=== PATIENT | male | born 1975 | race Caucasian/White ===

== ENCOUNTER 2017-06-26 21:15 | Emergency (ER) | payer BC ==
--- NOTE | 2017-06-26 21:30 | EDM.PDOC ---
ED HPI GENERAL MEDICAL PROBLEM - General Stated Complaint: LT ARM PAIN Time Seen by Provider: 06/26/17 21:21 Source of Information: Reports: Patient, Family History Limitations: Reports: No Limitations - History of Present Illness INITIAL COMMENTS - FREE TEXT/NARRATIVE: 41 y.o.w.m came to the ed 5 hours after he was hit by a hockey stick onto his left forearm. Pt had FROM with pain. No open wound. No N/V/D or any other acute medical issues. BP 149/83 RR 18 Pulse ox 99% on RA Temp 36.6 Pulse 85 Onset: Today Onset Date: 06/26/17 Onset Time: 17:00 Duration: Hour(s): Location: Reports: Upper Extremity, Left Quality: Reports: Ache, Burning, Dull Severity: Moderate Improves with: Reports: Rest Worsens with: Reports: Movement Context: Reports: Trauma Treatments PELT GRADER: Reports: Acetaminophen L forearm & elbow Pain Score (Numeric/FACES): 7 - Related Data Allergies Allergy/AdvReac Type Severity Reaction Status Date / Time clindamycin Allergy Rash Verified 06/26/17 21:25 Home Meds: Home Meds NK [No Known Home Meds] 06/26/17 [History] Review of Systems - Review of Systems Review Of Systems: See Below Constitutional: Reports: No Symptoms Eyes: Reports: No Symptoms Ears: Reports: No Symptoms Nose: Reports: No Symptoms Mouth/Throat: Reports: No Symptoms Respiratory: Reports: No Symptoms Cardiovascular: Reports: No Symptoms GI/Abdominal: Reports: No Symptoms Genitourinary: Reports: No Symptoms Musculoskeletal: Reports: Arm Pain Skin: Reports: No Symptoms Neurological: Reports: No Symptoms Psychiatric: Reports: No Symptoms ED EXAM, GENERAL - Physical Exam Exam: See Below Exam Limited By: No Limitations General Appearance: Alert, WD/WN, Moderate Distress Eye Exam: Bilateral Eye: Normal Inspection Ears: Normal External Exam Ear Exam: Bilateral Ear: Auricle Normal Nose: Normal Inspection, Normal Mucosa Throat/Mouth: Normal Inspection, Normal Lips Head: Atraumatic, Normocephalic Neck: Normal Inspection, Supple, Non-Tender, Full Range of Motion Respiratory/Chest: No Respiratory Distress, Lungs Clear, Normal Breath Sounds, Chest Non-Tender Cardiovascular: Normal Peripheral Pulses, Regular Rate, Rhythm, No Edema, No Gallop, No Rub Peripheral Pulses: 1+: Brachial (L) GI/Abdominal: Normal Bowel Sounds, Soft, Non-Tender (Male) Exam: Deferred Rectal (Males) Exam: Deferred Back Exam: Normal Inspection, Full Range of Motion Extremities: Normal Inspection, Normal Range of Motion, Normal Capillary Refill , Other (tender, deformed left forearm) Neurological: Alert, Oriented, CN II-XII Intact, Normal Cognition, Normal Gait Psychiatric: Normal Affect, Normal Mood Skin Exam: Warm, Dry, Intact, Normal Color, No Rash Lymphatic: No Adenopathy ED TRAUMA EXTREMITY PROCEDURES - Splinting Left Upper Extremity Pre-Procedure NV Status: Normal Post-Procedure NV Status: Normal Splint Material: Plaster Splint Design: Volar Applied & Form Fitted By: Provider Provider Post-Splint Application NV Check: NV Status Normal, Good Position Complications: No Course - Vital Signs Text/Narrative:: 41 y.o.w.m came to the ed 5 hours after he was hit by a hockey stick onto his left forearm. Pt had FROM with pain. No open wound. No N/V/D or any other acute medical issues. BP 149/83 RR 18 Pulse ox 99% on RA Temp 36.6 Pulse 85 PE: WNWD W M NAD with left mid forearm pain and swelling Imaging: Hairline Fx left mid shaft of radius Impression: Hairline Fx left mid shaft of radius, closed Tx: Long forearm splint, armsling, Toradol, Percocet Reecheck: Cap refill <2 sec from of fingers Plan: D/C with instructions Addendum: Imaging film were sent to PACS: No facture left forearm, soft tissue swelling, however. I have called the pt at about 8 am, telling him there is no radius far and the splint can be taken off. He may still have pain for a week or so. Sha black 06/27/2017 9 am Last Recorded V/S: Last Vital Signs Temp 36.7 C 06/26/17 21:18 Pulse 74 06/26/17 21:18 Resp 18 06/26/17 22:27 BP 157/101 H 06/26/17 22:27 Pulse Ox 98 06/26/17 22:27 - Orders/Labs/Meds Orders: Active Orders 24 hr Category Date Time Status Forearm 2V Lt [CR] Stat Exams 06/26/17 21:22 Taken Meds: Medications Discontinued Medications Generic Name Dose Route Start Last Admin Trade Name Ziyad PRN Reason Stop Dose Admin Ketorolac Tromethamine Confirm 06/26/17 22:07 06/26/17 22:10 Toradol Administered 06/26/17 22:08 Not Given Dose 60 mg .ROUTE .STK-MED ONE Ketorolac Tromethamine 60 mg 06/26/17 22:00 06/26/17 22:10 Toradol IM 06/26/17 22:01 60 mg ONETIME ONE Administration Departure - Departure Time of Disposition: 22:00 Disposition: Home, Self-Care 01 Condition: Good Clinical Impression: Radius shaft fracture Qualifiers: Encounter type: initial encounter Fracture type: closed Fracture alignment: nondisplaced Laterality: left - Discharge Information Instructions: Forearm Fracture, [id number], Acetaminophen; Oxycodone capsules Referrals: Antonio Loja MD [Primary Care Provider] - Forms: ED Return to Work/School Form Additional Instructions: Rest, Ice and elevation, Motrin as needed for moderate pain/percocet for severe pain. Please follow up with orthopedic doctor a.s.a.p, use arm sling. Please come back if your symptoms get worse acutely. - My Orders Last 24 Hours: My Active Orders 06/26/17 21:22 Forearm 2V Lt [CR] Stat - Assessment/Plan Last 24 Hours: My Active Orders 06/26/17 21:22 Forearm 2V Lt [CR] Stat
[2017-06-26] MEDS ORDERED: Ketorolac 60 MG/2 ML SDV IM ONE (22:00)
[2017-06-26] MEDS ORDERED: Acetaminophen/oxyCODONE 325-5 MG Tab PO ONE (22:07)
[2017-06-26] MEDS ORDERED: Ketorolac 60 MG/2 ML SDV ONE (22:07)
== END 2017-06-26 22:40 | disposition home or self-care (01) ==
LOC: FB.ED 21:15
DX: S52.302A Unspecified fracture of shaft of left radius, initial encounter for closed fracture (principal); W21.210A Struck by ice hockey stick, initial encounter; Z88.1 Allergy status to other antibiotic agents
CPT/HCPCS: 29125; 73090; 96372; 99283; A9270; J1885

== ENCOUNTER 2022-01-06 05:54 | Emergency (ER) | payer OTHER, BC ==
[2022-01-06] MEDS ORDERED: Diphtheria,Pertussis(Acell),Tetanus Vaccine 0.5 ML Syringe IM ONE (07:22)
== END 2022-01-06 07:34 | disposition home or self-care (01) ==
LOC: FB.ED 05:54
DX: S61.211A Laceration without foreign body of left index finger without damage to nail, initial encounter (principal); F17.210 Nicotine dependence, cigarettes, uncomplicated; E66.9 Obesity, unspecified; Z68.35 Body mass index [BMI] 35.0-35.9, adult; Z23 Encounter for immunization; Z88.1 Allergy status to other antibiotic agents; Z79.899 Other long term (current) drug therapy; W23.1XXA Caught, crushed, jammed, or pinched between stationary objects, initial encounter; Y99.0 Civilian activity done for income or pay
CPT/HCPCS: 12002; 73140-F1; 90471; 90715; 99000; 99283-25